=== PATIENT | female | born 1990 | race Caucasian/White ===

== ENCOUNTER 2023-05-16 14:41 | Outpatient (CLI) | payer OTHER, SELFPAY ==
[2023-05-16 15:03] LABS: HCT 38.7 % (36.0-46.0); HGB 12.4 g/dL (11.2-15.7); MCH 26.1 pg (27.0-33.0); MCV 81 fL (80-95); MPV 9.3 fL (8.0-11.0); Platelet Count 364 10^3/uL (130-400); RBC 4.76 10^6/uL (3.93-5.22); RDW 13.5 % (11.7-14.6); RDW-SD 39.6 fL; WBC 8.48 10^3/uL (4.4-10.8)
[2023-05-16 15:29] LABS: Hemoglobin A1C 5.6 % (<5.7)
[2023-05-16 16:07] LABS: ALT 48 U/L (14-59); AST 25 U/L (15-37); Alkaline Phosphatase 79 U/L (46-116); Anion Gap 12.1 mmol/L (3-11); BUN 14 mg/dL (7-18); Bilirubin, Total 0.4 mg/dL (0.2-1.0); CO2 24.9 mmol/L (21.0-32.0); CREATININE 0.9 mg/dL (0.55-1.02); Calcium 9.6 mg/dL (8.5-10.1); Chloride 102 mmol/L (98-107); Estimated GFR 86.57 (mL/min/1.73m2); Glucose 97 mg/dL (74-106); Sodium 139 mmol/L (136-145); TSH (W/Ref FT4) 6.24 uIU/mL (0.36-3.74); Total Protein 8.7 g/dL (6.4-8.2)
[2023-05-17 09:46] LABS: Prolactin 5.5 ng/mL (See Note)
== END 2023-05-16 14:42 | disposition home or self-care (01) ==
LOC: LBO 14:42
PROVIDERS: Visit Provider Obstetrics & Gynecology
DX: N93.9 Abnormal uterine and vaginal bleeding, unspecified (principal); E11.9 Type 2 diabetes mellitus without complications
CPT/HCPCS: 36415; 80053; 85027; 83036; 84146; 84439; 84443

== ENCOUNTER 2023-05-29 12:22 | Outpatient (REF) | payer OTHER, SELFPAY ==
--- NOTE | 2023-05-29 11:45 | PAPFT_PTH ---
PATIENT: Donya Petty LOC: [facility] U#:[id number] AGE/SX: 32/F ROOM: RE05/29/[address]: Jolanta Pagan MD : [id number] BED: DIS: 05/29/2023 SPEC #: [id number] RECD: 05/29/23 17:40 STATUS: LETY REQ #: [id number] DANIAL: 05/29/23 11:[address]: Jolanta Pagan DEPT: [facility] Cytology RECD BY: Fatoumata Harvey ENTERED: 05/29/23 17:40 SP TYPE: PAPFT GINA DR: Unknown,Unknown Tissues: 1 - CX/ENDOCX FOR PAP SMEARS Procedures: PAP THIN PREP/[facility] Screening HPV DNA PROBE Comments: [id number]
== END 2023-05-29 12:23 | disposition home or self-care (01) ==
LOC: LBN 12:22
PROVIDERS: Visit Provider Obstetrics & Gynecology
DX: Z01.419 Encounter for gynecological examination (general) (routine) without abnormal findings (principal)
CPT/HCPCS: 88142; 87624

== ENCOUNTER → 2023-06-19 02:22 | Outpatient (CLI) | payer OTHER, SELFPAY ==
--- NOTE | 2023-06-19 | DI.MAMMO_ITS ---
Exam(s) MAMMO SCREENING EXAM: MAMMO SCREENING CLINICAL HISTORY: SCREENING,Z12.31,FAMILY H/O BREAST CA TECHNIQUE: Mammograms were interpreted according to the usual protocol including computer analysis w [employer] CAD system, tomosynthesis and C-view imaging. COMPARISON: No exams were available for comparison. Baseline examination. FINDINGS: The breasts are composed of scattered fibroglandular densities, Breast Density category B. No suspicious masses or suspicious microcalcifications are seen. No skin thickening or abnormal axillary lymph nodes are seen. IMPRESSION: BI-RADS Category 1, Negative mammogram Yearly screening mammography is recommended. Breast Density - Category B, scattered fibroglandular densities. A negative radiographic report should not delay biopsy if a dominant or clinically suspicious mass is present. Up to ten percent of cancers are not identified on mammography. A negative report may reinforce clinical impression. Adenosis and dense breasts may obscure an underlying neoplasm. False positive reports average 6 to 10%. Patient will receive a letter notifying them of these results.
== END ==
PROVIDERS: PCP Student in an Organized Health Care Education/Training Program; Visit Provider Student in an Organized Health Care Education/Training Program
DX: Z12.31 Encounter for screening mammogram for malignant neoplasm of breast (principal); R92.323 Mammographic fibroglandular density, bilateral breasts; Z80.3 Family history of malignant neoplasm of breast
CPT/HCPCS: 77063; 77067

== ENCOUNTER 2023-08-30 15:56 | Outpatient (REF) | payer OTHER, SELFPAY ==
[2023-08-30 19:16] LABS: TSH (W/Ref FT4) 3.13 uIU/mL (0.36-3.74)
[2023-08-30 19:33] LABS: COMMENT (LAB VIEW ONLY) 148.53 mg/dL; Microalb ug/mg Crea 3.5 ug/mg Cr
== END 2023-08-30 15:57 | disposition home or self-care (01) ==
LOC: NCHCN 15:56
PROVIDERS: PCP Student in an Organized Health Care Education/Training Program; Visit Provider Student in an Organized Health Care Education/Training Program
DX: E11.9 Type 2 diabetes mellitus without complications (principal); E03.9 Hypothyroidism, unspecified
CPT/HCPCS: 82043; 82570; 84443

== ENCOUNTER 2023-12-11 18:30 | Outpatient (REF) | payer OTHER, SELFPAY ==
[2023-12-11 17:55] LABS: TSH (W/Ref FT4) 3.88 uIU/mL (0.36-3.74)
[2023-12-11 17:59] LABS: COMMENT (LAB VIEW ONLY) 179.72 mg/dL; Microalb ug/mg Crea 5.7 ug/mg Cr
[2023-12-11 18:16] LABS: FREE T4 0.94 ng/dL (0.76-1.46)
== END 2023-12-11 18:31 | disposition home or self-care (01) ==
LOC: NCHCN 18:30
PROVIDERS: PCP Student in an Organized Health Care Education/Training Program; Visit Provider Student in an Organized Health Care Education/Training Program
DX: E11.9 Type 2 diabetes mellitus without complications (principal); E03.9 Hypothyroidism, unspecified
CPT/HCPCS: 82043; 82570; 84439; 84443

== ENCOUNTER 2024-06-16 15:03 | Outpatient (REF) | payer OTHER, SELFPAY ==
[2024-06-16 21:51] LABS: FREE T4 0.97 ng/dL (0.76-1.46); TSH 3.02 uIU/mL (0.36-3.74)
== END 2024-06-16 15:04 | disposition home or self-care (01) ==
LOC: NCHCN 15:03
PROVIDERS: PCP Student in an Organized Health Care Education/Training Program; Visit Provider Student in an Organized Health Care Education/Training Program
DX: E03.9 Hypothyroidism, unspecified (principal)
CPT/HCPCS: 84439; 84443

== ENCOUNTER 2024-07-09 00:41 | Outpatient (CLI) | payer OTHER, SELFPAY ==
--- NOTE | 2024-07-09 | DI.MAMMO_ITS ---
Exam(s) MAMMO SCREENING EXAM: MAMMO SCREENING CLINICAL HISTORY: Z12.39 Encounter for other screening for malig neoplasm of breast, FA HX TECHNIQUE: Mammograms were interpreted according to the usual protocol including computer analysis w ith CAD system, tomosynthesis and C-view imaging. COMPARISON: 2023 FINDINGS: The breasts are composed of scattered fibroglandular densities, Breast Density category B. No suspicious masses or suspicious microcalcifications are seen. No skin thickening or abnormal axillary lymph nodes are seen. There has been no significant change from prior exams. IMPRESSION: BI-RADS Category 1, Negative mammogram Yearly screening mammography is recommended. Breast Density - Category B, scattered fibroglandular densities. A negative radiographic report should not delay biopsy if a dominant or clinically suspicious mass is present. Up to ten percent of cancers are not identified on mammography. A negative report may reinforce clinical impression. Adenosis and dense breasts may obscure an underlying neoplasm. False positive reports average 6 to 10%. Patient will receive a letter notifying them of these results.
== END 2024-07-09 01:01 ==
PROVIDERS: PCP Student in an Organized Health Care Education/Training Program; Visit Provider Student in an Organized Health Care Education/Training Program
DX: Z12.31 Encounter for screening mammogram for malignant neoplasm of breast (principal); R92.323 Mammographic fibroglandular density, bilateral breasts
CPT/HCPCS: 77063; 77067

== ENCOUNTER 2024-12-15 16:16 | Outpatient (REF) | payer OTHER, SELFPAY ==
[2024-12-15 19:45] LABS: COMMENT (LAB VIEW ONLY) 181.07 mg/dL; Microalb ug/mg Crea 5.8 ug/mg Cr
== END 2024-12-15 16:17 | disposition home or self-care (01) ==
LOC: NCHCN 16:16
PROVIDERS: PCP Student in an Organized Health Care Education/Training Program; Visit Provider Student in an Organized Health Care Education/Training Program
DX: E11.9 Type 2 diabetes mellitus without complications (principal)
CPT/HCPCS: 82043; 82570